=== PATIENT | male | born 1990 | race Caucasian/White ===

== ENCOUNTER 2019-07-24 19:43 | Inpatient (IN) ==
[2019-07-25] MEDS ORDERED: ONDANSETRON 4 MG/2 ML VIAL IV PRN (02:00)
[2019-07-25] MEDS ORDERED: ACETAMINOPHEN 325 MG TABLET PO PRN (02:00)
[2019-07-25] MEDS ORDERED: SODIUM CHLORIDE 0.9% 1,000 ML IV SCH (02:00)
[2019-07-25] MEDS: PIPERACILLIN/TAZOBACTAM 3,375 MG in SODIUM CHLORIDE 0.9% 100 ML IV SCH ×2 (02:19→10:10)
[2019-07-25 02:31] LABS: Basophils # 0.1 10*3/uL (0.0-0.2); Basophils % 0.7 % (0.0-0.8); Eosinophils # 0.2 10*3/uL (0.0-0.87); Eosinophils % 2.5 % (0.00-10.9); Hemoglobin 14.6 GM/DL (14.0-18.0); Immature Granulocytes % 0.5 %; Immature Granulocytes Absolute 0.04 #; Lymphocytes # 2.7 10*3/uL (1.4-4.0); Lymphocytes % 31.4 % (21.2-54.2); Mean Corpuscular Volume 90.1 FL (87-102); Mean Platelet Volume 9.3 FL (9.6-12.0); Neutrophils % 57.9 % (38.7-73.9); Platelet Count 241 T/CUMM (130-400); Red Blood Count 4.77 MC/CUMM (3.8-5.5); Red Cell Distribution Width 13.1 % (9.3-17.3); White Blood Count 8.5 T/CUMM (4-12)
[2019-07-25 02:41] LABS: PT Patient Result 10.7 SECS (9.6-12.2)
[2019-07-25 03:04] LABS: Albumin 3.7 G/DL (3.4-5.0); Bilirubin,Total 0.4 MG/DL (0.2-1.0); Calcium 8.7 MG/DL (8.5-10.1); Osmolality,Calculated 280.3 MOS/KG (273-304)
[2019-07-25] MEDS ORDERED: LIDOCAINE MPF 1% /EPI 30 ML VIAL ONE (07:22)
[2019-07-25] MEDS ORDERED: BUPIVACAINE 0.25% /EPI 10 ML VIAL ONE (07:22)
[2019-07-25] MEDS ORDERED: SEVOFLURANE 1 UNIT/15 MINUTE INH ONE (08:51)
[2019-07-25] MEDS ORDERED: PROPOFOL 200 MG/20 ML VIAL IV ONE (08:51)
[2019-07-25] MEDS ORDERED: MIDAZOLAM 2 MG/2 ML VIAL ONE (08:51)
[2019-07-25] MEDS ORDERED: LIDOCAINE 2% 5 ML VIAL ONE (08:51)
[2019-07-25] MEDS ORDERED: DEXAMETHASONE 4 MG/1 ML VIAL ONE (08:52)
[2019-07-25] MEDS ORDERED: ONDANSETRON 4 MG/2 ML VIAL ONE (08:52)
[2019-07-25] MEDS ORDERED: KETOROLAC 30 MG/1 ML VIAL ONE (08:52)
[2019-07-25] MEDS ORDERED: fentaNYL 100 MCG/2 ML VIAL ONE (08:52)
[2019-07-25] MEDS ORDERED: PANTOPRAZOLE 40 MG TABLET PO SCH (09:00)
[2019-07-25] MEDS ORDERED: HYDROmorphone 2 MG/1 ML VIAL IV ONE ×2 (09:52→11:38)
[2019-07-25] MEDS ORDERED: KETOROLAC 30 MG/1 ML VIAL IV ONE (11:38)
[2019-07-25 14:19] VITALS: BP 118/59
== END 2019-07-25 14:00 | disposition home or self-care (01) | DRG 603 ==
LOC: N.ED 19:43 → N.EDINP 23:53 → N.3E 07-25 00:19
PROVIDERS: ADMIT Surgery; ATTEND Surgery